=== PATIENT | female | born 1930 | race Caucasian/White ===

== ENCOUNTER 2016-11-15 22:00 | Emergency (ER) | payer OTHER, MEDICARE ==
[~2016-11-15] VITALS: Ht 162.6 cm; Wt 81.7 kg
[~2016-11-15 22:00] MED LIST: ASPIR 8181 MG PO; CARVEDILOL12.5 MG; CENTRUM SILVER1 EAC5; COZAAR 25 MG TA25 M1 PO; HYDROCHLOROTH12.5 M1 PO; LEVAQUIN 500 M500 MG PO; NORVASC10 MG PO; PREDNISONE 20 M20 MG PO; VENTOLIN HFA 1818 GM; VITAMIN D3400 UNIT
[2016-11-15 23:31] LABS: URINE BILIRUBIN NEGATIVE (Negative); URINE BLOOD 3+ (Negative); URINE COLOR RED; URINE GLUCOSE-RANDOM* NEGATIVE (Negative); URINE KETONES TRACE (Negative); URINE NITRITE POSITIVE (Negative); URINE PROTEIN (DIPSTICK) 2+ (Negative); URINE SPECIFIC GRAVITY 1.025 (1.003-1.035)
[2016-11-15 23:38] LABS: ABSOLUTE NEUTROPHILS 5.4 thou/uL (1.4-8.2); BASOPHILS 0.5 % (0.0-2.0); EOSINOPHILS 4.1 % (0.0-3.0); HEMATOCRIT 39.3 % (37.0-47.0); HEMOGLOBIN 13.5 gm/dL (12.0-15.0); LYMPHOCYTES 23.5 % (24.0-44.0); MCH 33.4 pg (26.0-34.0); MCHC 34.4 g/dL (28.0-37.0); MCV 97.1 fL (80.0-100.0); MONOCYTES 7.4 % (1.0-8.0); PLATELET COUNT 211 thou/uL (150-400); POLYS 64.5 % (36.0-66.0); RBC 4.05 mil/uL (4.20-5.00); RDW 12.9 % (10.5-14.5); WBC 8.3 thou/uL (4.0-11.0)
[2016-11-15 23:39] LABS: MANUAL DIFF NO
[2016-11-15 23:41] LABS: CALCIUM 9.7 mg/dL (8.5-10.1); CREATININE 0.9 mg/dL (0.6-1.0); POTASSIUM 3.9 mmol/L (3.5-5.1)
[2016-11-15 23:46] LABS: SQUAMOUS 4-10 Moderate /LPF (0-3)
[2016-11-15 23:48] LABS: CASTS None Seen /LPF (None Seen); URINE RBC >20 Many /HPF (0-2)
[2016-11-15 23:50] LABS: BACTERIA 1-9 Few /HPF (None Seen); CRYSTALS None Seen /LPF (None Seen); URINE WBC 0-5 Rare /HPF (0-5)
[2016-11-16] MEDS ORDERED: CIPRO500 MG PO (00:15)
[2016-11-16 00:45] VITALS: BP 134/69
[2016-11-16 00:45] LABS: APTT 27.8 Seconds (24.5-32.8); INR 1.1; PROTIME 10.9 Seconds (9.3-11.4)
== END 2016-11-16 00:45 | disposition home or self-care (01) ==
LOC: ER 22:00
PROVIDERS: Nurse Practitioner
DX: N39.0 Urinary tract infection, site not specified (principal); N93.8 Other specified abnormal uterine and vaginal bleeding; I10 Essential (primary) hypertension; J45.909 Unspecified asthma, uncomplicated